=== PATIENT | male | born 1975 | race Two or more races ===

== ENCOUNTER 2016-09-08 10:16 | Inpatient (IN) | payer OTHER ==
[2016-09-08 12:52] VITALS: BMI 24.8
--- NOTE | 2016-09-08 15:02 | HP ---
Admission ROS [facility] Chief Complaint: I need help to stop using heroin Allergies/Adverse Reactions: Allergies Allergy/AdvReac Type Severity Reaction Status Date / Time No Known Allergies Allergy Verified 09/08/16 14:02 History of Present Illness: 40 y/o m pt aox3 in nad ambulating and cooperative with exam. Exam Limitations: No Limitations - Ebola screening Have you traveled outside of the country in the last 21 days: No Have you had contact with anyone from an Ebola affected area: No Have you been sick,other than usual withdrawal symptoms: No Do you have a fever: No - Review of Systems Constitutional: Loss of Appetite, Malaise, Night Sweats EENT: reports: Nose Congestion Respiratory: reports: No Symptoms reported Cardiac: reports: No Symptoms Reported GI: reports: Nausea : reports: No Symptoms Reported Musculoskeletal: reports: Back Pain, Joint Pain Integumentary: reports: No Symptoms Reported Neuro: reports: Numbness Hematology: reports: No Symptoms Reported Psychiatric: reports: Depressed Other Systems: Reviewed and Negative Patient History - Patient Medical History Hx Anemia: No Hx Asthma: No Hx Chronic Obstructive Pulmonary Disease (COPD): No Hx Cancer: No Hx Cardiac Disorders: No Hx Congestive Heart Failure: No Hx Hypertension: No Hx Hypercholesterolemia: No Hx Pacemaker: No HX Cerebrovascular Accident: No Hx Seizures: No Hx Dementia: No Hx Diabetes: No Hx Gastrointestinal Disorders: No Hx Liver Disease: No Hx Genitourinary Disorders: No Hx Sexually Transmitted Disorders: No Hx Renal Disease (ESRD): No Hx Thyroid Disease: No Hx Human Immunodeficiency Virus (HIV): No (negative 6m ago) Hx Hepatitis C: Yes Hx Depression: Yes Hx Suicide Attempt: Yes (02/2016 heroin OD) Hx Bipolar Disorder: No Hx Schizophrenia: No - Patient Surgical History Past Surgical History: No Hx Neurologic Surgery: No Hx Cataract Extraction: No Hx Cardiac Surgery: No Hx Lung Surgery: No Hx Breast Surgery: No Hx Breast Biopsy: No Hx Abdominal Surgery: No Hx Appendectomy: No Hx Cholecystectomy: No Hx Genitourinary Surgery: No Hx Section: No Hx Orthopedic Surgery: No - PPD History Previous Implant?: Yes Documented Results: Negative w/o proof Implanted On Prior R Admission?: Yes Date: 03/19/13 Results: 0mm + redness - Reproductive History Patient is a Female of Child Bearing Age (11 -55 yrs old): No - Smoking Cessation Smoking history: Current every day smoker Have you smoked in the past 12 months: Yes Aproximately how many cigarettes per day: 20 Cigars Per Day: 0 Hx Chewing Tobacco Use: No Initiated information on smoking cessation: Yes 'Breaking Loose' booklet given: 09/08/16 - Substance & Tx. History Hx Alcohol Use: No Hx Substance Use: Yes Substance Use Type: Cocaine, Marijuana, Opiates - Substances Abused Heroin Route: Injection Frequency: Daily Amount used: 20 bags Age of first use: 32 Date of Last Use: 09/08/16 Cocaine Route: Injection Frequency: Daily Amount used: $100 Age of first use: 32 Date of Last Use: 09/08/16 Marijuana/Hashish Route: Smoking Frequency: Daily Amount used: $50 Age of first use: 27 Date of Last Use: 09/07/16 Family Disease History - Family Disease History Family Disease History: Diabetes: Mother, Brother Admission Physical Exam [facility] - Vital Signs Vital Signs: Vital Signs - 24 hr 09/08/16 12:50 Temperature 97 F L Pulse Rate 78 Respiratory 18 Rate Blood Pressure 141/73 - Physical General Appearance: Yes: Disheveled, Anxious HEENTM: Yes: Hearing grossly Normal, Normal ENT Inspection, Normal Voice, Rhinorrhea Respiratory: Yes: Chest Non-Tender, Lungs Clear, Normal Breath Sounds, Labored Respiration Neck: Yes: Supple, Trachea in good position Breast: Yes: Within Normal Limits Genitourinary: Yes: Within Normal Limits Back: Yes: Decreased Range of Motion Musculoskeletal: Yes: Back pain, Joint Stiffness Extremities: Yes: Within Normal Limits 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 NML intact, Fully Oriented, Alert, Motor Strength 5/5, Numbness Integumentary: Yes: Moist, Track [place] Lymphatic: Yes: Within Normal Limits - Diagnostic (1) Nicotine dependence Current Visit: Yes Status: Chronic (2) Opioid dependence Current Visit: Yes Status: Chronic (3) Cocaine dependence Current Visit: Yes Status: Chronic (4) Cannabis abuse Current Visit: Yes Status: Chronic (5) Depression Current Visit: Yes Status: Chronic Qualifiers: Major depression episode severity: unspecified Cleared for Admission [facility] - Detox or Rehab [facility] Level of Care: Medically Managed Detox Regimen/Protocol: Methadone [facility] Breath Alcohol Content Breath Alcohol Content: 0 Urine Drug Screen - Results Drug Screen Negative: No Urine Drug Screen Results: THC-Marijuana, DELANEY-Cocaine, OPI-Opiates
[2016-09-08] MEDS ORDERED: IBUPROFEN 400 MG TABLET (FP) PO PRN (15:14)
[2016-09-08] MEDS ORDERED: NICOTINE POLACRILEX 4 MG GUM BC PRN (15:14)
[2016-09-08] MEDS ORDERED: hydrOXYzine PAMOATE 25 MG CAPSULE (FP) PO PRN (15:14)
[2016-09-08] MEDS ORDERED: diphenhydrAMINE HCL 50 MG CAPSULE PO PRN (15:14)
[2016-09-08] MEDS ORDERED: MAGNESIUM CITRATE 300 ML BOTTLE PO PRN (15:14)
[2016-09-08] MEDS ORDERED: LOPERAMIDE HCL 2 MG CAPSULE PO PRN (15:14)
[2016-09-08] MEDS ORDERED: MENTHOL/PHENOL 1 EACH UD MM PRN (15:14)
[2016-09-08] MEDS ORDERED: guaiFENesin/D-METHORPHAN HB 10 ML UNIT-DOSE CUPS PO PRN (15:14)
[2016-09-08] MEDS ORDERED: ACETAMINOPHEN 325 MG TABLET (FP) PO PRN (15:14)
[2016-09-08] MEDS ORDERED: P-EPHED 60MG/TRIPROLIDI 2.5MG TABLET PO PRN (15:14)
[2016-09-08] MEDS ORDERED: MAGNESIUM HYDROX 2400MG/30ML ORAL SUSPENSION 30 ML CUP PO PRN (15:14)
[2016-09-08] MEDS ORDERED: MAG HYDROX/AL HYDROX/SIMETH 30 ML UNIT-DOSE CUP PO PRN (15:14)
[2016-09-08] MEDS ORDERED: METHADONE HCL 10 MG TABLET (FOR DETOX USE ONLY) PO ONE ×2 (16:15→23:00)
[2016-09-08] MEDS: diazePAM 5 MG TABLET PO PRN ×2 (16:16→22:18)
[2016-09-08] MEDS ORDERED: THIAMINE HCL 100 MG TABLET (FP) PO SCH (22:00)
[2016-09-08] MEDS: BACITRACIN 0.9 GM PACKET TP SCH (22:20)
[2016-09-09 03:04] LABS: URINE APPEARANCE CLEAR; URINE BILIRUBIN NEGATIVE (NEGATIVE); URINE BLOOD NEGATIVE (NEGATIVE); URINE COLOR DKYELLOW; URINE GLUCOSE (UA) NEGATIVE (NEGATIVE); URINE KETONE NEGATIVE (NEGATIVE); URINE LEUK ESTERASE NEGATIVE (NEGATIVE); URINE NITRITE NEGATIVE (NEGATIVE); URINE PROTEIN NEGATIVE (NEGATIVE); URINE UROBILINOGEN 4.0 E.U/dl E.U./dl (0.2-1.0)
[2016-09-09] MEDS: diazePAM 5 MG TABLET PO PRN ×3 (06:07→14:36)
[2016-09-09] MEDS ORDERED: PRENATAL VITAMINS W/ FOLIC ACID TABLET (FP) PO SCH (10:00)
[2016-09-09] MEDS ORDERED: METHADONE HCL 10 MG TABLET (FOR DETOX USE ONLY) PO ONE (10:00)
[2016-09-09] MEDS ORDERED: NICOTINE 21 MG/24 HOURS TOPICAL PATCH TD SCH (10:00)
[2016-09-09 10:02] LABS: MCH 29.7 pg (25.7-33.7); MCHC 34.5 g/dl (32.0-35.9); MEAN CELL VOLUME 86.2 fl (80-96); MEAN PLT VOLUME 9.5 fl (7.5-11.1); PLATELET COUNT 204 K/MM3 (134-434); RDW 12.8 % (11.9-15.9); WHITE BLOOD COUNT 7.4 K/mm3 (4.0-10.0)
[2016-09-09] MEDS: BACITRACIN 0.9 GM PACKET TP SCH (10:06)
--- NOTE | 2016-09-09 10:12 | CONSULT ---
[facility] Psychiatric Consult - Data Date of interview: 09/09/16 Admission source: [facility] Identifying data: Readmission to [facility] for this 40 y/o [place] male seeking detox treatment for opiate,cocaine and marijuana dependence.Patient is ,a father of eight,domiciled,unemployed and deprived of any source of income. Substance Abuse History: - Smoking Cessation. Smoking history: Current every day smoker. Have you smoked in the past 12 months: Yes. Aproximately how many cigarettes per day: 20. Cigars Per Day: 0. Hx Chewing Tobacco Use: No. Initiated information on smoking cessation: Yes. 'Breaking Loose' booklet given : 09/08/16. - Substance & Tx. History. Hx Alcohol Use: No. Hx Substance Use: Yes. Substance Use Type: Cocaine, Marijuana, Opiates. - Substances Abused. * * Heroin. Route: Injection. Frequency: Daily. Amount used: 20 bags. Age of first use: 32. Date of Last Use: 09/08/16. Cocaine. Route: Injection. Frequency: Daily. Amount used: $100. Age of first use: 32. Date of Last Use: 09/08/16. Marijuana/Hashish. Route: Smoking. Frequency: Daily. Amount used: $50. Age of first use: 27. Date of Last Use: 09/07/16. Confirmed by patient. Medical History: Hepatitis C. Psychiatric History: Psychiatric hospitalization at [facility] eight months ago.Diagnosis : MDD.Prescribed seroquel 100 mg po bid + depakote 1000 mg/hs and zoloft (dose not recalled).Mr Cohen reports that he gets psychiatric OPD care at the [facility] in the [place].Not adherent to medications " for a little over two weeks." Patient admits to one suicide attempt via overdose with heroin (few years ago). Physical/Sexual Abuse/Trauma History: Patient denies. Additional Comment: Urine Drug Screen Results: THC-Marijuana, DELANEY-Cocaine, OPI- Opiates.Noted. Mental Status Exam - Mental Status Exam Alert and Oriented to: Time, Place, Person Cognitive Function: Good Patient Appearance: Well Groomed (tall stature,medium habitus) Mood: Withdrawn, Hopeful Affect: Constricted Patient Behavior: Fatigued, Appropriate, Cooperative Speech Pattern: Clear (bilingual) Voice Loudness: Normal Thought Process: Goal Oriented Thought Disorder: Not Present Hallucinations: Denies Suicidal Ideation: Denies Homicidal Ideation: Denies Insight/Judgement: Poor Sleep: Poorly, Difficulty falling asleep Appetite: Good Muscle strength/Tone: Normal Gait/Station: Normal Psychiatric Findings - Problem List ([place] 1, 2,3) (1) Cocaine dependence Current Visit: Yes Status: Acute (2) Opioid dependence Current Visit: Yes Status: Acute (3) Marijuana dependence Current Visit: Yes Status: Acute (4) Nicotine dependence Current Visit: Yes Status: Acute (5) Bipolar disorder Current Visit: Yes Status: Chronic Comment: History. - Initial Treatment Plan Initial Treatment Plan: Psychoeducation.Detoxification in progress.Pharmacy claims revisited.Medications reconciled.At patient's request : depakote 500 mg po bid + seroquel 100 mg po bid (to be held if oversedation/unsteady gait) .Zoloft not found among reported claims.Side effects/benefits discussed with patient.Observation.Valproic acid requested.Will follow.
[2016-09-09 10:44] LABS: ALK PHOS 79 U/L (45-117); ANION GAP 10 (8-16); BILIRUBIN,TOTAL 0.5 mg/dL (0.2-1.0); CALCIUM 8.9 mg/dL (8.5-10.1); CO2 25 mmol/L (21-32); COCKROFT - GAULT 145.65; CREATININE 0.9 mg/dL (0.7-1.3); GLUCOSE,RANDOM 137 mg/dL (74-106); SGOT/AST 25 U/L (15-37); SGPT/ALT 27 U/L (12-78); TOT PROT 7.2 g/dl (6.4-8.2)
--- NOTE | 2016-09-09 11:20 | PN ---
S CIWA - CIWA Score Nausea/Vomitin Muscle Tremors: 3 Anxiety: 3 Agitation: 3 Paroxysmal Sweats: 3 Orientation: 0-Oriented Tacttile Disturbances: 2-Mild Itch/Numbness/Burn Auditory Disturbances: 0-None Visual Disturbances: 0-None Headache: 0-None Present CIWA-Ar Total Score: 17 BHS Progress Note (SOAP) Subjective: INTERRUPTED SLEEP, SWEATS, SHAKES, DIARRHEA Objective: 09/09/16 11:18 Vital Signs Temperature 97.9 F 09/09/16 10:00 Pulse Rate 78 09/09/16 10:00 Respiratory Rate 16 09/09/16 10:00 Blood Pressure 133/86 09/09/16 10:00 O2 Sat by Pulse Oximetry (%) Laboratory Tests 09/08/16 09/09/16 09/09/16 23:13 06:00 06:00 WBC 7.4 RBC 4.46 Hgb 13.3 Hct 38.5 MCV 86.2 MCHC 34.5 RDW 12.8 Plt Count 204 D MPV 9.5 Sodium 140 Potassium 3.7 Chloride 105 Carbon Dioxide 25 Anion Gap 10 BUN 16 D Creatinine 0.9 Creat Clearance w eGFR > 60 Random Glucose 137 H D Calcium 8.9 Total Bilirubin 0.5 D AST 25 ALT 27 D Alkaline Phosphatase 79 Total Protein 7.2 Albumin 4.0 Urine Color Dkyellow Urine Appearance Clear Urine pH 5.0 Ur Specific [place] 1.029 Urine Protein Negative Urine Glucose (UA) Negative Urine Ketones Negative Urine Blood Negative Urine Nitrite Negative Urine Bilirubin Negative Urine Urobilinogen 4.0 e.u/dl Ur Leukocyte Esterase Negative 10/02/16 13:03 PT AOX3 IN NAD , IRRITABLE Assessment: 09/09/16 11:18 withdrawal sx's DIARRHEA 10/02/16 13:04 Plan: cont. detox increase fluids imodium prn
--- NOTE | 2016-09-09 13:15 | EKG ---
Test Reason : Blood Pressure : / mmHG Vent. Rate : 071 BPM Atrial Rate : 071 BPM P-R Int : 170 ms QRS Dur : 106 ms QT Int : 396 ms P-R-T Axes : 003 003 015 degrees QTc Int : 430 ms NORMAL SINUS RHYTHM INCOMPLETE RIGHT BUNDLE BRANCH BLOCK BORDERLINE ECG NO PREVIOUS ECGS AVAILABLE Confirmed by PHILIP COSTELLO, SEVEN ([id number]) on 09/09/2016 1:14:41 PM Referred By: Confirmed By:SEVEN PALACIOS MD
[2016-09-09 14:00] VITALS: BP 137/67; PULSE 72; TEMP 98.2
--- NOTE | 2016-09-09 18:06 | DS ---
[facility] Detox Discharge Summary Admission Date: 09/08/16 Discharge Date: 09/09/16 - History Present History: Alcohol Dependence, Cannabis Dependence, Cocaine Dependence, Opioid Dependence - Physical Exam Results Vital Signs: Vital Signs Temperature 98.2 F 09/09/16 13:59 Pulse Rate 72 09/09/16 13:59 Respiratory Rate 16 09/09/16 13:59 Blood Pressure 137/67 09/09/16 13:59 O2 Sat by Pulse Oximetry (%) - Treatment Hospital Course: Detox Protocol Followed - Medication Discharge Medications: Ambulatory Orders Divalproex *ER* [Depakote *ER* -] 1,000 mg PO HS 03/17/13 Quetiapine Fumarate [Seroquel] 100 mg PO BID 09/08/16 Divalproex [Depakote -] 500 mg PO BID #60 tablet.ec 09/09/16 Quetiapine Fumarate [Seroquel] 100 mg PO BID #60 tablet 09/09/16 - Diagnosis (1) Nicotine dependence Current Visit: Yes Status: Chronic (2) Opioid dependence Current Visit: Yes Status: Chronic (3) Cocaine dependence Current Visit: Yes Status: Chronic Qualifiers: Substance use status: uncomplicated Qualified Code(s): F14.20 - Cocaine dependence, uncomplicated (4) Cannabis abuse Current Visit: Yes Status: Chronic (5) Depression Current Visit: Yes Status: Chronic Qualifiers: Major depression episode severity: unspecified - AMA Did Patient Leave Against Medical Advice: No (d/c'ed for fightting and throwing chairs )
[2016-09-09] MEDS ORDERED: DIVALPROEX SODIUM 500 MG TABLET E.C. PO SCH (22:00)
[2016-09-09] MEDS ORDERED: QUEtiapine FUMARATE 100 MG TABLET (FP) PO SCH (22:00)
[2016-09-10] MEDS ORDERED: METHADONE HCL 5 MG TABLET (FOR DETOX USE ONLY) PO ONE (10:00)
[2016-09-11] MEDS ORDERED: METHADONE HCL 5 MG TABLET (FOR DETOX USE ONLY) PO ONE (10:00)
[2016-09-12] MEDS ORDERED: METHADONE HCL 10 MG TABLET (FOR DETOX USE ONLY) PO ONE (10:00)
[2016-09-13] MEDS ORDERED: METHADONE HCL 5 MG TABLET (FOR DETOX USE ONLY) PO ONE (06:00)
== END 2016-09-09 17:40 | disposition home or self-care (01) | DRG 773 ==
LOC: YASAS 10:16 → Y6N 14:45
PROVIDERS: ADMIT Internal Medicine Addiction Medicine; ATTEND Internal Medicine Addiction Medicine
PROC: HZ2ZZZZ Detoxification Services for Substance Abuse Treatment (ICD-10-PCS; principal; 2016-09-08)
DX: F11.23 Opioid dependence with withdrawal (principal); F14.20 Cocaine dependence, uncomplicated; F12.20 Cannabis dependence, uncomplicated; F17.210 Nicotine dependence, cigarettes, uncomplicated; F32.9 Major depressive disorder, single episode, unspecified; F31.9 Bipolar disorder, unspecified; Z91.5 Personal history of self-harm; F91.8 Other conduct disorders
CPT/HCPCS: 36415; 80053; 81003; 85027; 86593; 93005; 93010